=== PATIENT | male | born 1990 | race Caucasian/White ===

== ENCOUNTER 2022-01-06 05:11 | Inpatient (IN) ==
--- NOTE | 2022-01-06 05:28 | Emergency Department Note ---
History of Present Illness General Chief complaint: Rib Injury/Pain Stated complaint: RT SIDE PAIN Time Seen by Provider: 01/06/22 05:20 History of Present Illness Maximum Pain Intensity: 6 This 31-year-old who had shoulder surgery 10 days ago presents to the ER complaining of right-sided chest pain and shortness of breath today Location: Right-sided chest Quality: Discomfort Severity: Moderate Duration: Today Timing: Today Context: Patient was concerned and came in Modifying factors: better with rest; worse with breathing patient does smoke marijuana. No tobacco. No history of blood clots. No leg pain or swelling. No family history of blood clots. Patient denies fever, chills, flulike illness or any other medical complaints. He states overall his shoulder is feeling better from the surgery. Home Medications Medication Instructions Recorded Confirmed Type oxycodone 10 mg tablet,crush 10 mg PO Q12 PRN 01/06/22 01/06/22 History resistant,extended release 12 hr (OxyContin) oxycodone-acetaminophen 5 mg-325 1 - 2 tab PO Q4H PRN 01/06/22 01/06/22 History mg tablet Allergies Allergy/AdvReac Type Severity Reaction Status Date / Time No Known Allergies Allergy Verified 01/06/22 07:16 Past Med/Surg History Medical History Laceration of lower extremity Laceration of upper extremity with complication Surgical History S/P knee surgery Social History Smoking Status: Never smoker Preferred Language: Trinidadian marital status: single current occupation: self-employed Feels Safe at Home: Yes Review of Systems A total of 10 systems reviewed and were otherwise negative Physical Exam Vital Signs Vital Signs - 24 hr 01/06/22 05:16 01/06/22 05:56 01/06/22 07:00 Temperature 36.7 C Temperature Source Temporal Artery Scan Pulse Rate 80 Pulse Rate [Apical] 69 61 Pulse Rhythm [Apical] Regular Pulse Strength [Apical] Normal Respiratory Rate 18 20 14 Respiratory Effort / Characteristics Non-Labored Spontaneous Non-Labored Respiratory Depth Normal Normal Blood Pressure 135/70 Blood Pressure [Right Arm] 136/86 119/77 Blood Pressure Mean 91 Blood Pressure Mean [Right Arm] 102 91 Blood Pressure Position [Right Arm] Pulse Oximetry 96 94 96 Oxygen Delivery Method Room Air Room Air Sepsis Recent Fever Within 48 Hours No Sepsis New/Unexplained Change in Mental Status No Sepsis Action Taken by Nursing No Action Required 01/06/22 08:00 Temperature Temperature Source Pulse Rate Pulse Rate [Apical] 62 Pulse Rhythm [Apical] Regular Pulse Strength [Apical] Normal Respiratory Rate 14 Respiratory Effort / Characteristics Non-Labored Respiratory Depth Normal Blood Pressure Blood Pressure [Right Arm] 136/73 Blood Pressure Mean Blood Pressure Mean [Right Arm] 94 Blood Pressure Position [Right Arm] Lying Pulse Oximetry 99 Oxygen Delivery Method Room Air Sepsis Recent Fever Within 48 Hours Sepsis New/Unexplained Change in Mental Status Sepsis Action Taken by Nursing VITALS: Vitals are noted on the nurse's note and reviewed by myself. Vital signs stable. GENERAL: Pleasant male speaking in full sentences, in no acute distress, nondiaphoretic, well-developed well-nourished. SKIN: The skin was without rashes, erythema, edema, or bruising. There is no tenting of the skin. Capillary reflex less than 2 seconds. HEAD: Normocephalic atraumatic. EARS: External auditory canals clear, EYES: Pupils equal round and reactive to light and accommodation. Conjunctivae without injection, sclerae without icterus. Extraocular movements intact. NOSE: Patent, turbinates without inflammation or discharge. MOUTH: Mucous membranes moist. Pharynx without erythema or exudate. Uvula midline. Airway patent. Tongue does not deviate. NECK: Supple without nuchal rigidity. No lymphadenopathy. No thyromegaly. Cervical spine is nontender. No JVD. HEART: Regular rate and rhythm LUNGS: Clear to auscultation bilaterally without wheezes, rales or rhonchi. No retractions or accessory muscle use. ABDOMEN: Positive bowel sounds x 4. Normal tympanic percussion. Soft, nontender, without masses or organomegaly. Pena sign negative. No guarding or rebound tenderness. No CVA tenderness MUSCULOSKELETAL: No muscle atrophy, erythema, or edema noted. NEURO: Patient was alert and oriented to person place and time. Normal sensation to light and sharp touch. No focal neurological deficits. Course Administered Medications Heparin Sodium/Dextrose (Heparin Sodium/Dextrose) 25,000 units in 500 mls @ 32 mls/hr IV .[id number] [facility]; Protocol Stop: 02/05/22 06:59 Last Admin: 01/06/22 07:11 Dose: 1,600 units/hr, 32 mls/hr Documented by: [id number] Cosigned by: [id number] Discontinued Medications Heparin Sodium (Porcine) (Heparin Sod (Porcine) 1000 Unit/Ml) 7,000 units IV NOW ONE Stop: 01/06/22 07:01 Last Admin: 01/06/22 07:11 Dose: 7,000 units Documented by: [id number] Cosigned by: [id number] Acetaminophen (Ofirmev) 1,000 mg in 100 mls @ 400 mls/hr IV NOW STA Stop: 01/06/22 06:03 Last Infusion: 01/06/22 06:23 Dose: 0 mls/hr Documented by: [id number] Admin: 01/06/22 06:00 Dose: 400 mls/hr Documented by: [id number] Ioversol (Optiray 320 125ml) 125 ml IV ONCE ONE Stop: 01/06/22 05:54 Last Admin: 01/06/22 05:53 Dose: 96 ml Documented by: [id number] Critical Care Time I have personally spent 35 minutes of critical care time in the direct management of this patient. This includes bedside care, interpretation of diagnostic studies, and testing, discussion with consultants, patient, and family members, and other required patient management activities. This 35 minutes is in excess of all separately billable procedures. Medical Decision Making Medical Records Attestation: I reviewed the patient's medical records. Home Medications Current Medication List: was personally reviewed by nd Laboratory Data Attestation: I reviewed the patient's lab results. Result diagrams: 01/06/22 05:30 01/06/22 05:30 Lab Results 01/06/22 01/06/22 01/06/22 Range/Units 05:30 05:30 05:30 WBC 10.30 (4.8-10.8) K/uL RBC 4.57 L (4.7-6.1) M/uL Hgb 14.4 (14.0-18.0) g/dL Hct 40.7 L (42-52) % MCV 89.1 (80-100) fL MCH 31.5 (25-34) pg MCHC 35.4 (32-36) g/dL RDW Std Deviation 40.7 (36.4-46.3) fL RDW Coeff of Cele 12.7 (11.5-14.5) % Plt Count 291 (130-400) K/uL MPV 10.8 H (7.4-10.4) fL Immature Gran % (Auto) 0.2 % Neut % (Auto) 58.5 % Lymph % (Auto) 27.2 % [place] % (Auto) 12.0 % Eos % (Auto) 2.0 % Baso % (Auto) 0.1 % Neut # (Auto) 6.02 (1.4-6.5) K/uL Lymph # (Auto) 2.80 (1.2-3.4) K/uL [place] # (Auto) 1.24 H (0.11-0.59) K/uL Eos # (Auto) 0.21 (0-0.5) K/uL Baso # (Auto) 0.01 (0-0.2) K/uL Immature Gran # (Auto) 0.02 (0.00-0.02) K/uL PT 10.0 (9.0-12.0) Seconds INR 0.9 (0.9-1.1) APTT 26.6 (21.0-31.0) Seconds PTT Ratio 1.0 Sodium (136-145) mmol/L Potassium (3.5-5.1) mmol/L Chloride (98-107) mmol/L Carbon Dioxide (21-32) mmol/L Anion Gap (3-11) BUN (6-23) mg/dl Creatinine (0.6-1.4) mg/dl Est Cr Clr Drug Dosing ml/min Est GFR ( Amer) ml/min Est GFR (Non-Af Amer) ml/min BUN/Creatinine Ratio (10-20) Glucose (70-99(Fasting)) mg/dl Calcium (8.5-10.1) mg/dl Total Bilirubin (0.2-1.0) mg/dl AST (13-39) U/L ALT (7-52) U/L Alkaline Phosphatase (34-104) U/L Troponin I < 0.03 (0-0.04) ng/ml Total Protein (6.0-8.3) gm/dl Albumin (3.4-5.0) gm/dl Globulin (2.5-4.0) gm/dl Albumin/Globulin Ratio (0.9-2) SARS-CoV-2, RNA, NAAT (NEGATIVE) 01/06/22 01/06/22 Range/Units 05:30 06:32 WBC (4.8-10.8) K/uL RBC (4.7-6.1) M/uL Hgb (14.0-18.0) g/dL Hct (42-52) % MCV (80-100) fL MCH (25-34) pg MCHC (32-36) g/dL RDW Std Deviation (36.4-46.3) fL RDW Coeff of Cele (11.5-14.5) % Plt Count (130-400) K/uL MPV (7.4-10.4) fL Immature Gran % (Auto) % Neut % (Auto) % Lymph % (Auto) % [place] % (Auto) % Eos % (Auto) % Baso % (Auto) % Neut # (Auto) (1.4-6.5) K/uL Lymph # (Auto) (1.2-3.4) K/uL [place] # (Auto) (0.11-0.59) K/uL Eos # (Auto) (0-0.5) K/uL Baso # (Auto) (0-0.2) K/uL Immature Gran # (Auto) (0.00-0.02) K/uL PT (9.0-12.0) Seconds INR (0.9-1.1) APTT (21.0-31.0) Seconds PTT Ratio Sodium 139 (136-145) mmol/L Potassium 4.3 (3.5-5.1) mmol/L Chloride 103 (98-107) mmol/L Carbon Dioxide 28 (21-32) mmol/L Anion Gap 8 (3-11) BUN 20 (6-23) mg/dl Creatinine 1.01 (0.6-1.4) mg/dl Est Cr Clr Drug Dosing 125.5 ml/min Est GFR ( Amer) 113.5 ml/min Est GFR (Non-Af Amer) 98.0 ml/min BUN/Creatinine Ratio 19.8 (10-20) Glucose 99 (70-99(Fasting)) mg/dl Calcium 9.8 (8.5-10.1) mg/dl Total Bilirubin 0.5 (0.2-1.0) mg/dl AST 20 (13-39) U/L ALT 25 (7-52) U/L Alkaline Phosphatase 63 (34-104) U/L Troponin I (0-0.04) ng/ml Total Protein 7.2 (6.0-8.3) gm/dl Albumin 4.6 (3.4-5.0) gm/dl Globulin 2.6 (2.5-4.0) gm/dl Albumin/Globulin Ratio 1.8 (0.9-2) SARS-CoV-2, RNA, NAAT NEGATIVE (NEGATIVE) Imaging Data Attestation: I personally reviewed and interpreted this imaging study as fo llows: Radiologist's Impression: Chest CTA 01/06/22 05:20 CHEST CTA for PULMONARY ARTERIES CT DOSE: 563.25 mGy.cm HISTORY: Right-sided chest pain. Assess for pulmonary embolus. TECHNIQUE: Multiaxial CT images of the chest were performed following the intrav enous administration of contrast to evaluate the pulmonary arteries. Maximal intensity projection images were also obtained. A dose lowering technique was utilized adhering to the principles of ALARA. COMPARISON STUDY: None. FINDINGS: The visualized liver, spleen, adrenal glands are unremarkable. Trace right pleural effusion. No mediastinal or hilar lymphadenopathy. There is flattening of the interventricular septum mild prominence of the right ventricle. This suggests mild right-sided heart strain. Filling defects seen within the right lower lobe segmental/subsegmental pulmonary arteries consistent with pulmonary embolus. Normal esophagus. No fractures within the visualized osseous structures. No pneumothorax. The central airways are patent. Small peripheral groundglass density within the base of the right lower lobe may represent a developing pulmonary infarct. There are additional linear densities within the lung bases suggesting subsegmental atelectasis. IMPRESSION: 1. Right lower lobe segmental/subsegmental pulmonary emboli with evidence for mild right-sided heart strain. 2. Trace right pleural effusion. 3. Small peripheral groundglass density within the base the right lower lobe which tapers a developing pulmonary infarct. ACT 112: Negative or not required by law. Electronically signed by: He Sloan M.D. 01/06/2022 7:44 AM MDM Narrative Prior records/ancillary studies reviewed. Triage Nursing notes reviewed. Additional history obtained from nurse. The patient's history was concerning for chest pain. Differential diagnosis: Etiologies such as cardiac ischemia, aortic dissection, pulmonary embolism, pneumonia, pneumothorax, musculoskeletal, infections, pericarditis, myocarditis, esophageal rupture, gastrointestinal, as well as others were entertained. Physical examination: As above. ER treatment provided: An order was placed for continuous cardiac monitoring. The monitor shows a rate of 60-100 with a sinus rhythm. Tylenol, heparin On reassessment the patient felt better. Diagnostic interpretation by me: The electrocardiogram was negative for pathologic change. Ordered for chest pain EKG: Normal sinus, normal intervals, no acute ST-T wave changes. Impression normal sinus rhythm interpreted by myself I think arrhythmia is unlikely. EKG shows normal sinus rhythm with no interval abnormalities such as QT prolongation or WPW. There are no findings to suggest Brugada syndrome. Cardiac monitoring in the emergency department reveals no tachycardic or bradycardic dysrhythmia. Hypertrophic cardiomyopathy was considered but there are no clear historical elements pointing toward this. EKG is not suggestive. The QRS voltage is not extremely large and there are no suggestive Q waves. The labs revealed neg troponin Stable creatinine and H&H on i-STAT. Unfortunately this did not crossover Imaging studies: Preliminary Findings Only See Final Report For Complete Findings CTA CHEST: Impression: There is acute segmental and subsegmental pulmonary embolism seen in the right lower lobe. Subsegmental pulmonary embolism seen in the right middle lobe Discoid atelectasis seen in the lung bases, right more than left. Main pulmonary artery is not dilated. There is mild straightening of the intraventricular septum, suggesting elevated right heart pressures. Radiologist: Ron Jordan MD HEART SCORE: Hx: high/mod/low suspicion: 0 ECG: ST depression/nonspecific changes/normal: 0 Age: Greater than 65/45-64/less than 45: 0 Risk factors: (Hypertension, hyperlipidemia, diabetes, coronary disease, tobacco use, cocaine use): 0 Troponin: Greater than 2 times normal limits/1-2 times normal limits/normal: 0 Total: 0 Consultation: A consultation was placed with the hospitalist, Dr Adam. The case was discussed and diagnostics were reviewed. The patient was evaluated in the ER for further treatment. Exam and history seem consistent with PE form recent OR. Advanced labs were ordered and patient was written for heparin. Patient will be admitted. Medicine was consulted. By the evaluation outlined above emergent etiologies such as cardiac ischemia, aortic dissection, , pneumonia, pneumothorax, infections, pericarditis, myocarditis, gastrointestinal, as well as others were deemed relatively unlikely. The pt informed about the findings as listed above. All questions were answered and pleased with the treatment. The chart was completed utilizing [employer] Speech voice recognition software. Grammatical errors, random word insertions, pronoun errors, and incomplete sentences are an occassional consequence of this system due to software limitations, ambient noise, and hardware issues. Any formal questions or concerns about the content, text, or information contained within the body of this dictation should be directly addressed to the physician bookkeeper assistant for clarification. Impression & Plan Pulmonary embolism Discharge Plan Visit Data Chief Complaint: Rib Injury/Pain Stated Complaint: RT SIDE PAIN ED Provider: Ant Villegas ED Midlevel Provider: Riddhi Moreau Discharge Problem: Pulmonary embolism Patient Disposition: Admitted As Inpatient Condition: Good Forms Stand Alone Forms: [employer] Prescriptions Prescriptions: No Action oxycodone-acetaminophen 5-325 mg tablet 1 - 2 tab PO Q4H PRN (Reason: Pain) RF: 0 oxycodone [OxyContin] 10 mg tablet,oral only,ext.rel.12 hr 10 mg PO Q12 PRN (Reason: Pain) RF: 0 Referrals Referrals: PCP,NO [Physician] - Discharge Problem: Pulmonary embolism Qualifiers: Pulmonary embolism type: other Chronicity: acute Acute cor pulmonale presence: unspecified Qualified Code(s): I26.99 - Other pulmonary embolism without acute cor pulmonale
[2022-01-06] MEDS ORDERED: ACETAMINOPHEN 1,000 MG/100 ML VIAL IV STA (05:49)
[2022-01-06] MEDS ORDERED: OPTIRAY 320 125ml IV ONE (05:53)
[2022-01-06] MEDS ORDERED: Heparin IV Adult Wt-Based Standard WITH Bolus Protocol IV STA (06:32)
[2022-01-06] MEDS ORDERED: HEPARIN SOD (PORCINE) 1000 UNIT/ML IV ONE ×2 (06:48→07:00)
[2022-01-06 06:49] LABS: Basophils # (auto) 0.01 K/uL (0-0.2); Basophils % (auto) 0.1 %; Eosinophils # (auto) 0.21 K/uL (0-0.5); Hematocrit (blood only) 40.7 % (42-52); Hemoglobin 14.4 g/dL (14.0-18.0); Immature Granulocytes # (auto) 0.02 K/uL (0.00-0.02); Immature Granulocytes % (auto) 0.2 %; Lymphocytes % (auto) 27.2 %; Mean Corpuscular Hemoglobin 31.5 pg (25-34); Mean Corpuscular Hgb Conc 35.4 g/dL (32-36); Mean Corpuscular Volume 89.1 fL (80-100); Mean Platelet Volume 10.8 fL (7.4-10.4); Monocytes # (auto) 1.24 K/uL (0.11-0.59); Neutrophils # (auto) 6.02 K/uL (1.4-6.5); Neutrophils % (auto) 58.5 %; Platelet Count 291 K/uL (130-400); RDW Coefficient of Variation 12.7 % (11.5-14.5); RDW Standard Deviation 40.7 fL (36.4-46.3); Red Blood Count 4.57 M/uL (4.7-6.1)
[2022-01-06 07:02] LABS: INR 0.9 (0.9-1.1)
[2022-01-06 07:03] LABS: Albumin Globulin Ratio 1.8 (0.9-2); Albumin Level 4.6 gm/dl (3.4-5.0); BUN Creatinine Ratio 19.8 (10-20); Bilirubin,Total 0.5 mg/dl (0.2-1.0); Calcium 9.8 mg/dl (8.5-10.1); Creatinine Clr Calc Pharmacy 125.5 ml/min; Est GFR (African American) 113.5 ml/min; Globulin 2.6 gm/dl (2.5-4.0); Potassium 4.3 mmol/L (3.5-5.1); Total Protein 7.2 gm/dl (6.0-8.3)
[2022-01-06] MEDS: HEPARIN SODIUM/DEXTROSE 25,000 UNITS/500 ML BAG IV SCH ×2 (07:11→21:49)
[2022-01-06 07:24] LABS: Partial Thromboplastin Time 26.6 Seconds (21.0-31.0)
--- NOTE | 2022-01-06 07:45 | CT Scan Report ---
CHEST CTA for PULMONARY ARTERIES CT DOSE: 563.25 mGy.cm HISTORY: Right-sided chest pain. Assess for pulmonary embolus. TECHNIQUE: Multiaxial CT images of the chest were performed following the intravenous administration of contrast to evaluate the pulmonary arteries. Maximal intensity projection images were also obtaine d. A dose lowering technique was utilized adhering to the principles of ALARA. COMPARISON STUDY: None. FINDINGS: The visualized liver, spleen, adrenal glands are unremarkable. Trace right pleural effusion . No mediastinal or hilar lymphadenopathy. There is flattening of the interventricular septum mild pr ominence of the right ventricle. This suggests mild right-sided heart strain. Filling defects seen wi thin the right lower lobe segmental/subsegmental pulmonary arteries consistent with pulmonary embolus . Normal esophagus. No fractures within the visualized osseous structures. No pneumothorax. The centr al airways are patent. Small peripheral groundglass density within the base of the right lower lobe m ay represent a developing pulmonary infarct. There are additional linear densities within the lung ba ses suggesting subsegmental atelectasis. IMPRESSION: 1. Right lower lobe segmental/subsegmental pulmonary emboli with evidence for mild right-sided heart strain. 2. Trace right pleural effusion. 3. Small peripheral groundglass density within the base the right lower lobe which tapers a developin g pulmonary infarct. ACT 112: Negative or not required by law. Electronically signed by: He Sloan M.D. 01/06/2022 7:44 AM
--- NOTE | 2022-01-06 08:57 | History & Physical Report ---
Date of Service January 06, 2022 Assessment & Plan (1) Pulmonary embolism: Plan: Likely related to recent immobility from shoulder surgery. No known family hx of clots, no personal hx of similar. Concern for right heart strain on CTA. Currently, vital signs stable, not hypoxic. - Admit to PCU - Check ECHO - Heparin gtt with transition to oral AC - Consult pulm (2) S/P shoulder surgery: Plan: - Tylenol ATC with prn oxycodone for pain control - Stool softener for constipation - Ice to area Plan: Pt seen and reviewed with attending physician, Dr. Green. Plan of care discussed and as outlined above. Code Status: Full code DVT prophylaxis: on heparin gtt for PE Cuauhtemoc Figueroa PA-C History of Present Illness Chief Complaint: Short of breath/chest pain Primary Care Provider: Jayy Vargas MD This is a 31 y/o male who underwent shoulder surgery ten days ago who presented to the ED early this morning with shortness of breath and chest pain with deep breathing. The pt reports that he has been relatively inactive since undergoing surgery last Monday. Yesterday he noticed some soreness in his right chest/rib area but attributed this to not moving around much since he had some generalized soreness. However, last night around 4 am, he woke up abruptly feeling like was unable to breath and noted significant pain in the right lower chest with deep breathing. Pain did radiate somewhat to side and right mid-back. He denies ever having something like this before. No prior history of blood clots. He also c/o left shoulder pain related to his surgery - has been using oxycodone alternating with Tylenol and Advil. Has been having PT and was scheduled for his post-op ortho f/u tomorrow to have the sutures removed. He has had some constipation related to the narcotics - now moving his bowels but hard and painful. Denies fevers, chills, cough, congestion, HAMILTON, dizziness, syncopal episode, N/V or urinary symptoms. No known family history of blood clots. Allergies Allergy/AdvReac Type Severity Reaction Status Date / Time No Known Allergies Allergy Verified 01/06/22 07:16 Home Medications Medication Instructions Recorded Confirmed Type oxycodone 10 mg tablet,crush 10 mg PO Q12 PRN 03/24/22 03/24/22 History resistant,extended release 12 hr (OxyContin) oxycodone-acetaminophen 5 mg-325 1 - 2 tab PO Q4H PRN 01/06/22 01/06/22 History mg tablet Past Med/Surg History Medical History Laceration of lower extremity Laceration of upper extremity with complication Surgical History History of shoulder surgery S/P knee surgery Family History (Updated 01/06/22 @ 09:09 by Shameka Figueroa PA-C) Other Hypertension Denies family history of Clotting disorder Social History (Updated 01/06/22 @ 09:11 by Shameka Figueroa PA-C) Smoking Status: Never smoker Hx Alcohol Use: No Hx Substance Use: Yes Non-Prescribed Medications: Marijuana Last Used Substance Other:: yesterday Preferred Language: Mohawk Communication Ability: Effective 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 Beliefs That Will Affect Care: None marital status: single Current Living Situation: Significant Other current occupational status: employed 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[employer], works on the [employer] frequently Other Information That Helps Us Care for You: No Feels Safe at Home: Yes Safety Concerns: Feels Safe At This Time Assistive Devices: Glasses Review of Systems Review of Systems: All systems reviewed & are unremarkable except as noted in HPI & below Constitutional: no fever, no chills, no sweats and no anorexia Eyes: no diplopia Ear, Nose, Mouth, Throat: no nasal congestion, no nasal discharge and no sore throat Respiratory: as per Subjective / HPI; no cough and no wheezing Cardiovascular: as per Subjective / HPI; no palpitations, no lightheadedness, no syncope, no edema and no calf pain Gastrointestinal: + constipation; no abdominal pain, no nausea, no vomiting and no diarrhea/loose stools Genitourinary: no dysuria, no difficulty urinating or no hematuria Musculoskeletal: as per Subjective / HPI and + joint pain (left shoulder) Integumentary: no yellowing of the skin Neurologic: no tingling, no numbness and no seizure-like activity Psychiatric: no depression and no anxiety Physical Exam Constitutional: well developed and well nourished; no acute distress Eyes: + anicteric sclerae ENMT: external ear and nose normal, oropharynx normal Neck: trachea midline Respiratory: no respiratory distress and no labored breathing Auscultation: lungs clear to auscultation bilaterally and + diminished lung sounds; no rhonchi and no wheezes Cardiovascular: Rate/Rhythm: regular rate and regular rhythm Vessels: dorsalis pedis pulses present and radial pulses present Extremities: no calf tenderness and no pedal edema Gastrointestinal (Abdomen): Inspection/Auscultation: normal bowel sounds; abdomen not distended Percussion/Palpation: abdomen soft; abdomen nontender Musculoskeletal: Head/Neck/Chest: normocephalic, head atraumatic and neck supple limited ROM of left shoulder due to post-operative pain/stiffness Skin: no jaundice Neurologic: moves all extremities; no focal motor deficits Psychiatric: A+Ox3, euthymic affect Results & Data Results & Data ([facility]) Vital Signs (Past 12 Hours) Vital Signs Temp Pulse Pulse Resp BP BP Pulse Ox 01/06/22 08:00 62 14 136/73 99 01/06/22 07:00 61 14 119/77 96 01/06/22 05:56 69 20 136/86 94 01/06/22 05:16 36.7 C 80 18 135/70 96 Laboratory Results Laboratory Results - last 24 hr 01/06/22 01/06/22 01/06/22 05:30 05:30 05:30 WBC 10.30 RBC 4.57 L Hgb 14.4 Hct 40.7 L MCV 89.1 MCH 31.5 MCHC 35.4 RDW Std Deviation 40.7 RDW Coeff of Cele 12.7 Plt Count 291 MPV 10.8 H Immature Gran % (Auto) 0.2 Neut % (Auto) 58.5 Lymph % (Auto) 27.2 [place] % (Auto) 12.0 Eos % (Auto) 2.0 Baso % (Auto) 0.1 Neut # (Auto) 6.02 Lymph # (Auto) 2.80 [place] # (Auto) 1.24 H Eos # (Auto) 0.21 Baso # (Auto) 0.01 Immature Gran # (Auto) 0.02 PT 10.0 INR 0.9 APTT 26.6 PTT Ratio 1.0 Sodium Potassium Chloride Carbon Dioxide Anion Gap BUN Creatinine Est Cr Clr Drug Dosing Est GFR ( Amer) Est GFR (Non-Af Amer) BUN/Creatinine Ratio Glucose Calcium Total Bilirubin AST ALT Alkaline Phosphatase Troponin I < 0.03 Total Protein Albumin Globulin Albumin/Globulin Ratio SARS-CoV-2, RNA, NAAT 01/06/22 01/06/22 05:30 06:32 WBC RBC Hgb Hct MCV MCH MCHC RDW Std Deviation RDW Coeff of Cele Plt Count MPV Immature Gran % (Auto) Neut % (Auto) Lymph % (Auto) [place] % (Auto) Eos % (Auto) Baso % (Auto) Neut # (Auto) Lymph # (Auto) [place] # (Auto) Eos # (Auto) Baso # (Auto) Immature Gran # (Auto) PT INR APTT PTT Ratio Sodium 139 Potassium 4.3 Chloride 103 Carbon Dioxide 28 Anion Gap 8 BUN 20 Creatinine 1.01 Est Cr Clr Drug Dosing 125.5 Est GFR ( Amer) 113.5 Est GFR (Non-Af Amer) 98.0 BUN/Creatinine Ratio 19.8 Glucose 99 Calcium 9.8 Total Bilirubin 0.5 AST 20 ALT 25 Alkaline Phosphatase 63 Troponin I Total Protein 7.2 Albumin 4.6 Globulin 2.6 Albumin/Globulin Ratio 1.8 SARS-CoV-2, RNA, NAAT NEGATIVE Diagnostic Findings CTA Chest 01/06/22 - IMPRESSION: 1. Right lower lobe segmental/subsegmental pulmonary emboli with evidence for mild right-sided heart strain. 2. Trace right pleural effusion. 3. Small peripheral groundglass density within the base the right lower lobe which tapers a developing pulmonary infarct. Medications Administered Heparin Sodium/Dextrose (Heparin Sodium/Dextrose) 25,000 units in 500 mls @ 32 mls/hr IV .[id number] [facility]; Protocol Stop: 02/05/22 06:59 Last Admin: 01/06/22 07:11 Dose: 1,600 units/hr, 32 mls/hr Documented by: [id number] Cosigned by: [id number] Discontinued Medications Heparin Sodium (Porcine) (Heparin Sod (Porcine) 1000 Unit/Ml) 7,000 units IV NOW ONE Stop: 01/06/22 07:01 Last Admin: 01/06/22 07:11 Dose: 7,000 units Documented by: [id number] Cosigned by: [id number] Acetaminophen (Ofirmev) 1,000 mg in 100 mls @ 400 mls/hr IV NOW STA Stop: 01/06/22 06:03 Last Infusion: 01/06/22 06:23 Dose: 0 mls/hr Documented by: [id number] Admin: 01/06/22 06:00 Dose: 400 mls/hr Documented by: [id number] Ioversol (Optiray 320 125ml) 125 ml IV ONCE ONE Stop: 01/06/22 05:54 Last Admin: 01/06/22 05:53 Dose: 96 ml Documented by: [id number] Code Status & VTE Plan VTE Prophylaxis Plan VTE Prophylaxis will be ordered: Yes Supervising Physician Co-Signing Physician Notes Patient seen and examined independently. Chart was reviewed. Case discussed with THOM. I agree with assessment and plan as above (1) Pulmonary embolism Acute cor pulmonale presence: unspecified Chronicity: acute Pulmonary embolism type: other Qualified Code(s): I26.99 - Other pulmonary embolism without acute cor pulmonale
[2022-01-06] MEDS ORDERED: oxyCODONE HCL 10 MG TABCR (OxyCONTIN) PO PRN (09:09)
[2022-01-06] MEDS ORDERED: ZOLPIDEM TARTRATE 5 MG TAB PO PRN (09:09)
[2022-01-06] MEDS ORDERED: ONDANSETRON INJ 2 MG/ML 2 ML VIAL IV PRN (09:09)
[2022-01-06] MEDS ORDERED: ALUMINUM/MAGNESIUM SUSP 30 ML UDC PO PRN (09:09)
[2022-01-06] MEDS ORDERED: oxyCODONE/ACETAMINOPHEN 5mg/325mg TAB PO PRN (09:09)
[2022-01-06] MEDS ORDERED: MAGNESIUM HYDROXIDE SUSP 30 ML UDC PO PRN (09:09)
[2022-01-06 13:44] LABS: Partial Thromboplastin Ratio 2.3
[2022-01-06 13:49] LABS: Partial Thromboplastin Time 63.3 Seconds (21.0-31.0)
[2022-01-06] MEDS: ACETAMINOPHEN 500 MG TAB PO SCH ×2 (14:18→21:43)
--- NOTE | 2022-01-06 14:59 | Ultrasound Report ---
US venous doppler LE BI CLINICAL HISTORY: Bilateral leg swelling. Pulmonary embolus. COMPARISON: None available at the time of this dictation. TECHNIQUE: Bilateral lower extremity real-time compression venous ultrasound with Color Doppler imagi ng. Utilizing real-time ultrasonic imaging multiple real time high-resolution ultrasonic images with comp ression and noncompression maneuvers of the deep venous system in addition to color doppler imaging w ere performed from the common femoral vein through the proximal calf veins. FINDINGS: Currently there is normal compressibility of the deep venous system from the common femoral vein thro ugh the proximal calf veins. No current evidence of acute thrombosis is identified. Impression: No evidence of deep venous thrombus. ACT 112: Negative or not required by law. Electronically signed by: Mook Mitchell M.D. 01/06/2022 2:57 PM
--- NOTE | 2022-01-06 16:58 | Electrocardiogram Report ---
Test Reason : Blood Pressure : / mmHG Vent. Rate : 066 BPM Atrial Rate : 066 BPM P-R Int : 166 ms QRS Dur : 080 ms QT Int : 366 ms P-R-T Axes : 062 066 056 degrees QTc Int : 383 ms Poor data quality, interpretation may be adversely affected Normal sinus rhythm Normal ECG No previous ECGs available Confirmed by Singh Avila ([id number]) on 01/06/2022 4:58:16 PM Referred By: REFERRED SELF Confirmed By:Manuel Avila
--- NOTE | 2022-01-06 17:49 | Critical Care Consultation ---
Date of Consultation January 06, 2022 Assessment & Plan (1) Pulmonary embolism: (2) Abnormal chest CT: (3) Pulmonary infarct: CT chest 01/06/2022 personally reviewed: Bilateral PE lower lobes, no right heart strain Minimal groundglass opacities appreciated in the right lower lobe with dep endent atelectasis Pneumonia sternal lymphadenopathy --Acute PE sPESI score 0 Provoked from the recent surgery and being bedbound Recommend 3-6 months of anticoagulation 2D echo shows normal right-sided pressures with good ejection fraction Doppler bilateral lower extremity negative Continue with heparin drip. No indication for TPA --Abnormal chest CT The groundglass opacities in the right lower lobe likely represent early infarction Plan: Follow-up 2D echo Follow-up Doppler lower extremities Patient's heart rate in the 70s, saturating on room air. No indication for TPA Continue with pain management to prevent splinting on the right side Can transition to p.o. DOACs as of tomorrow Case discussed with RN Please note the above document was generated using voice recognition software. It may contain grammatical, syntax or spelling errors.Any formal questions or concerns about the content, text or information contained within the body of this dictation should be directly addressed to the provider for clarification. History of Present Illness Attending Physician: Eze Green MD History of Present Illness 31-year-old male with no significant past medical history presented to the hospital with chest pain and shortness of breath In the ED patient had CTA chest done which showed bilateral PE Patient recently had surgery on the left shoulder done approximately 10 days ago. At the time of examination patient stated that he was very inactive and bedbound totally since the last 7-8 days He was taking pain medications for the pain in the left shoulder. Today in the morning when he woke up he started to feel chest discomfort and shortness of breath Patient denied any headache, no nausea, no vomiting He said that he is feeling better No dysuria, no diarrhea He was already on heparin drip at the time of examination No recent travel history. No prior history of any cause No family history of blood clots. Social history: Medical marijuana smoker. Denied any tobacco use. Works as self-employed. Owns restaurants Allergies Allergy/AdvReac Type Severity Reaction Status Date / Time No Known Allergies Allergy Verified 01/06/22 07:16 Home Medications Medication Instructions Recorded Confirmed Type oxycodone 10 mg tablet,crush 10 mg PO Q12 PRN 01/06/22 01/06/22 History resistant,extended release 12 hr (OxyContin) oxycodone-acetaminophen 5 mg-325 1 - 2 tab PO Q4H PRN 01/06/22 01/06/22 History mg tablet Patient History Medical History Laceration of lower extremity Laceration of upper extremity with complication Surgical History History of shoulder surgery S/P knee surgery Family History (Updated 01/06/22 @ 09:09 by Shameka Figueroa PA-C) Other Hypertension Denies family history of Clotting disorder Social History (Updated 01/06/22 @ 09:11 by Shameka Figueroa PA-C) Smoking Status: Never smoker Hx Alcohol Use: No Hx Substance Use: Yes Non-Prescribed Medications: Marijuana Last Used Substance Other:: yesterday Preferred Language: Danish Communication Ability: Effective Transportation Technician Required: No Beliefs That Will Affect Care: None marital status: single Current Living Situation: Significant Other current occupational status: employed 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[employer], works on the line frequently Other Information That Helps Us Care for You: No Feels Safe at Home: Yes Safety Concerns: Feels Safe At This Time Assistive Devices: Glasses Review of Systems Review of Systems: All systems reviewed & are unremarkable except as noted in HPI & below Physical Exam Physical Exam: Constitutional: No acute distress HEENT: EOMI, PERRLA Respiratory system: Decreased air entry bilaterally, no wheeze, no rhonchi, no crackles CVS: S1-S2 positive, no murmurs or gallops Abdomen: Soft, nontender, nondistended, positive bowel sounds x4 Extremities: +2 pulses bilaterally radialis/ dorsalis pedis, no cyanosis, no edema Neuro: Awake alert oriented x3 Psych: Normal mood and affect G/U: No Watson Skin: no rashes, warm and dry Lymphatic: no cervical or axillary lymphadenopathy Results & Data Results & Data ([facility]) Vital Signs (Past 12 Hours) Vital Signs Temp Pulse Pulse Resp BP BP Pulse Ox 01/06/22 09:11 36.7 C 64 14 133/76 95 01/06/22 09:00 62 14 133/76 96 01/06/22 08:00 62 14 136/73 99 01/06/22 07:00 61 14 119/77 96 01/06/22 05:56 69 20 136/86 94 01/06/22 05:16 36.7 C 80 18 135/70 96 Pulse Ox 01/06/22 09:11 95 01/06/22 09:00 01/06/22 08:00 01/06/22 07:00 01/06/22 05:56 01/06/22 05:16 Laboratory Results 01/06/22 05:30 01/06/22 05:30 Coding Level of Care Code 46523 Inpt Consult Level 5 Diagnoses Pulmonary embolism I26.99 Acute cor pulmonale presence: unspecified Chronicity: acute Pulmonary embolism type: other Abnormal chest CT R93.89 Pulmonary infarct I26.99 (1) Pulmonary embolism Acute cor pulmonale presence: unspecified Chronicity: acute Pulmonary embolism type: other Qualified Code(s): I26.99 - Other pulmonary embolism without acute cor pulmonale
[2022-01-06] MEDS ORDERED: MoRPHine SULFATE 4 MG/ML 1 ML CARP\\VIAL IV PRN (19:57)
[2022-01-06] MEDS: oxyCODONE HCL IR 5 MG TAB (IMMEDIATE RELEASE) PO PRN (20:13)
[2022-01-06] MEDS: DOCUSATE SODIUM 100 MG CAP PO SCH (21:43)
[2022-01-07] MEDS: ACETAMINOPHEN 500 MG TAB PO SCH (05:46)
[2022-01-07 06:03] LABS: Hematocrit (blood only) 43.1 % (42-52); Mean Corpuscular Hemoglobin 31.4 pg (25-34); Mean Corpuscular Hgb Conc 34.8 g/dL (32-36); Mean Corpuscular Volume 90.4 fL (80-100); Mean Platelet Volume 10.8 fL (7.4-10.4); Platelet Count 274 K/uL (130-400); RDW Coefficient of Variation 12.7 % (11.5-14.5); RDW Standard Deviation 42.3 fL (36.4-46.3); Red Blood Count 4.77 M/uL (4.7-6.1); White Blood Count 9.11 K/uL (4.8-10.8)
[2022-01-07 06:45] LABS: Partial Thromboplastin Ratio 2.1
[2022-01-07 07:17] LABS: Partial Thromboplastin Time 56.4 Seconds (21.0-31.0)
[2022-01-07] MEDS: oxyCODONE HCL IR 5 MG TAB (IMMEDIATE RELEASE) PO PRN (09:00)
[2022-01-07] MEDS: DOCUSATE SODIUM 100 MG CAP PO SCH (09:01)
--- NOTE | 2022-01-07 11:49 | Pulmonology Progress Note ---
Date of Service January 07, 2022 Assessment & Plan (1) Pulmonary embolism: Acute cor pulmonale presence: unspecified Chronicity: acute Pulmonary embolism type: other Qualified Code(s): I26.99 - Other pulmonary embolism without acute cor pulmonale (2) Abnormal chest CT: (3) Pulmonary infarct: Plan: CT chest 01/06/2022 personally reviewed: Bilateral PE lower lobes, no right heart strain Minimal groundglass opacities appreciated in the right lower lobe with dependent atelectasis Pneumonia sternal lymphadenopathy --Acute PE sPESI score 0 Provoked from the recent surgery and being bedbound Recommend 3-6 months of anticoagulation 2D echo shows normal right-sided pressures with good ejection fraction Doppler bilateral lower extremity negative Doppler negative for DVT Continue with heparin drip. No indication for TPA --Abnormal chest CT The groundglass opacities in the right lower lobe likely represent early infarction Plan: Okay to transition to p.o. anticoagulation and continued for 3-6 months Can have repeat CT chest done prior to discontinuation of oral anticoagulation Patient does have right-sided chest pain pleurisy in nature most likely from developing infarct. Continue with pain management. I did recommend the patient to continue taking deep breaths every couple of hours to prevent atelectasis on the right side from splinting Case discussed with RN and Dr Green No further recommendation from pulmonary perspective. Will sign off Please call directly with any questions Please note the above document was generated using voice recognition software. It may contain grammatical, syntax or spelling errors.Any formal questions or concerns about the content, text or information contained within the body of this dictation should be directly addressed to the provider for clarification. Admission and Anticipated Discharge Date Admission Date: January 06, 2022 Subjective Patient seen and examined at bedside. No acute distress He does complain of chest pain on the right side as well as right back pain. Does not radiate anywhere He also has left shoulder pain. Saturating 96-97% on room air No nausea vomiting Urinating well Poor appetite Review of Systems Review of Systems: All systems reviewed & are unremarkable except as noted in Subjective Physical Exam Physical Exam: Constitutional: No acute distress HEENT: EOMI, PERRLA Respiratory system: Decreased air entry bilaterally, no wheeze, no rhonchi, minimal crackles right lower lobe CVS: S1-S2 positive, no murmurs or gallops Abdomen: Soft, nontender, nondistended, positive bowel sounds x4 Extremities: +2 pulses bilaterally radialis/ dorsalis pedis, no cyanosis, no edema Neuro: Awake alert oriented x3 Psych: Normal mood and affect G/U: No Watson Skin: no rashes, warm and dry Lymphatic: no cervical or axillary lymphadenopathy Results & Data Results & Data ([facility]) Vital Signs (Past 12 Hours) Vital Signs Temp Pulse Pulse Resp BP Pulse Ox Pulse Ox 01/07/22 09:09 96 01/07/22 08:00 36.4 C L 60 18 114/69 96 01/07/22 07:02 57 L 01/07/22 03:38 36.6 C 62 18 127/74 95 Laboratory Results 01/07/22 05:42 01/06/22 05:30 PG Care Time/CCT Total # of Minutes Spent Total Time Spent with Patient: Total time spent is greater than 50% in coordination of care (as documented) at patient's floor/unit and/or counseling patient: Coding Level of Care Code 48892 Subseq Hosp Care Lvl 2 Diagnoses Pulmonary embolism I26.99 Acute cor pulmonale presence: unspecified Chronicity: acute Pulmonary embolism type: other Abnormal chest CT R93.89 Pulmonary infarct I26.99
[2022-01-07] MEDS ORDERED: STOP HEPARIN DRIP ORDER ONE (13:00)
--- NOTE | 2022-01-07 13:24 | Discharge Summary ---
Date of Service January 07, 2022 Admission HPI Per Admitting Provider This is a 31 y/o male who underwent shoulder surgery ten days ago who presented to the ED early this morning with shortness of breath and chest pain with deep breathing. The pt reports that he has been relatively inactive since undergoing surgery last Monday. Yesterday he noticed some soreness in his right chest/rib area but attributed this to not moving around much since he had some generalized soreness. However, last night around 4 am, he woke up abruptly feeling like was unable to breath and noted significant pain in the right lower chest with deep breathing. Pain did radiate somewhat to side and right mid-back. He denies ever having something like this before. No prior history of blood clots. He also c/o left shoulder pain related to his surgery - has been using oxycodone alternating with Tylenol and Advil. Has been having PT and was scheduled for his post-op ortho f/u tomorrow to have the sutures removed. He has had some constipation related to the narcotics - now moving his bowels but hard and painful. Denies fevers, chills, cough, congestion, HAMILTON, dizziness, syncopal episode, N/V or urinary symptoms. No known family history of blood clots. Principal Diagnosis Provoked right side segmental and subsegmental PE Atelectasis Recent left shoulder surgery Discharge Exam Feels well. Reports his chest pain is less sharp On exam, appears well. Breathing comfortably on room air. Regular rate and rhythm. Lung sounds are diminished at bases. No leg swelling Discharge Data Allergies Allergy/AdvReac Type Severity Reaction Status Date / Time No Known Allergies Allergy Verified 01/06/22 07:16 Consultations 01/06/22 06:40 ED Decision to Admit Stat 01/06/22 09:09 Consult Pulmonology Routine Ordered Studies 01/06/22 05:20 CT angio chest PE protocol Urgent 01/06/22 12:05 US venous doppler LE Routine Hospital Course Mr Calin Watkins is a 31 year old man who recently underwent left shoulder surgery presents to the ER 01/06 with chest pain and shortness of breath. CTA chest showed right lower segmental and subsegmental PE with evidence of mild heart strain and early developing infarct. He had a follow up TTE which was negative for heart strain. Lower extremity ultrasound negative for DVT. Patient was seen by Pulmonology and was not a TPA candidate, recommended for 3-6 months of anticoagulation with a repeat CT chest before discontinuation of anticoagulation. Patient was instructed to take deep breaths to avoid atelectasis. He should follow up with his PCP after discharge to arrange for repeat CT chest and to determine if anticoagulation should be extended. Total Time Total Time Spent Total Time Spent (In Minutes): 35 Discharge Plan Discharge Items Patient Disposition: Home - Self-Care Reason For Visit: PE Discharge Diagnosis: Provoked right segmental and subsegmental PE Condition on Discharge: Good Activity: As commented below Activity Comment: As tolerated Non-emergency contact: Primary Care Provider Call non-emergency contact if: you have any medication questions and your symptoms worsen Follow-up/Referrals: Jayy Vargas MD [Primary Care Provider] - (Date & Time 01/12/2022 11:00 AM Provider Myron Schmidt MD Department Family [facility] ) Diet: Regular Addtl Attending Provider Instructions: You will be going home on 3 months anticoagulation (blood thinner) Please follow up with your PCP to decide if your treatment course needs to be extended beyond that period Pending Studies at Discharge: No Stand-Alone Forms: My [facility] [place] [employer], Smoking Cessation Medications and DC Order Prescriptions: New docusate sodium 100 mg Capsule 100 mg PO BID 30 Days Qty: 60 RF: 0 polyethylene glycol 3350 [Miralax] 17 gram/dose powder 17 g PO DAILY PRN (Reason: constipation) 4 Days Qty: 68 RF: 0 Xarelto 15 mg tablet 15 mg PO BID 21 Days Qty: 42 RF: 0 Xarelto 20 mg tablet 20 mg PO PM Qty: 90 RF: 0 Continued oxycodone [OxyContin] 10 mg tablet,oral only,ext.rel.12 hr 10 mg PO Q12 PRN (Reason: Pain) RF: 0 oxycodone-acetaminophen 5-325 mg tablet 1 - 2 tab PO Q4H PRN (Reason: Pain) 3 Days Qty: 7 RF: 0 Discharge Orders: Discharge Order (Routine); Ordered 01/07/22 Ordered By: Eze Harmon/Other Patient Handouts: Xarelto Oral Tablet 15 mg, Using an Incentive Spirometer, Embolism Pulmonary Dc Admission Data Admit Date/Time: 01/06/22 08:12 Attending Provider: Eze Green Admit Provider: Eze Green Primary Care Provider: Jayy Vargas Other Providers: Keri Gallo ; Fawad Adam Other Interventions: Discharge Summary Assessment (RN) Last Done: 01/07/22 12:35
[2022-01-07] MEDS ORDERED: RIVAROXABAN 15 MG TAB PO ONE (14:00)
== END 2022-01-07 14:01 | disposition home or self-care (01) | DRG 314 ==
LOC: ED 05:11 → EDINP 08:12 → 2S 11:48